=== PATIENT | male | born 1980 | race Caucasian/White ===

== ENCOUNTER 2018-05-19 00:02 | Emergency (ER) | payer BC, OTHER, SELFPAY ==
[2018-05-19 00:02] VITALS: BP 167/113; PULSE 102; RESP 18; TEMP 36.3; O2SAT 100; BMI 34.9
--- NOTE | 2018-05-19 00:31 | RAD_ITS ---
STUDY: X-RAY - RIGHT HAND REASON FOR EXAM: Male, 37 years old. Trauma TECHNIQUE: 3 view(s) of the hand. COMPARISON: None. FINDINGS: Normal radiocarpal articulation. Normal distal radioulnar joint. Normal visualized carpal bones. Normal carpal articulations Normal carpometacarpal articulation of the thumb. Normal second through fifth carpometacarpal joints. Normal metacarpi. Normal metacarpophalangeal joint of the thumb. Normal interphalangeal joint of the thumb. Normal proximal and distal phalanges of the thumb. Normal metacarpophalangeal joints of the second through fifth fingers. Normal proximal and distal interphalangeal joints of the second through fifth fingers. There is a 1 mm density adjacent to the second distal phalanx which could be a cortical fracture or foreign body. Remainder of the phalanges are unremarkable. There is soft tissue laceration and swelling of the distal second digit. The soft tissue structures are unremarkable. RAD/Hand Min 3 Views IMPRESSION: There is a 1 mm density adjacent to the second distal phalanx which could be a cortical fracture or foreign body. Remainder of the phalanges are unremarkable. There is soft tissue laceration and swelling of the distal second digit. Electronically Signed: Tim Rodriguez MD at 1:23 EST , Service support ,
[2018-05-19] MEDS: Diphth,Pertuss(Acell),Tet Vac 0.5 ML Vial IM (00:37)
--- NOTE | 2018-05-19 01:03 | ED.VISSUMM ---
- ER Visit Summary Date of Service: 05/19/18 Chief Complaint: Dog bite History of Present Illness: The patient is a 37 M presents to the emergency department dog bite. Patient was playing with his dog. He states that a bit him on the right index finger. He is left-hand dominant. He is unsure of his last tetanus. He is otherwise healthy. He states he presented here because of the bleeding. He denies other injury. He denies any other medical conditions. Physical Examination: Examination of the right hand: Patient does have laceration distal to the medial aspect of the nail. There is also a small puncture on the palmar aspect. He does have some tissue loss near the eponychial fold on the medial aspect. His two-point determination is preserved. His cap refill is less than 2 seconds. His flexion and extension are preserved. Test Results: [] Emergency Department Course and Treatment: Plain films of the hand were obtained. The patient does have what appears to be a tuft fracture of the distal tip. Digital block was performed. When the patient was blocked, the medial aspect on the dorsum of the finger was basically avulsed. It was opened and irrigated aggressively. It was cleaned. Loose sutures were placed to reapproximate the wound. I did not want to close it too aggressively as this was a dog bite. The patient tolerated this without issue. I am going to place him on oral antibiotics. I did apprise counselor him that this is going to need orthopedic follow-up for reevaluation. He is comfortable with this plan of care. I did apprise counselor him that if this cannot be seen in the next 48 hours he should come back to the emergency department for reevaluation. He is comfortable with this plan of care. Treatment Plan: [] Disposition: Discharge Impression: 1. Dog bite right index finger 2. Tuft fracture right index finger This note was generated with [employer] dictation software. It may contain incorrect words, spelling, and punctuation that were not noted in review of the chart prior to signing ED Disposition - Plan for ED Patient: Disposition: Home or Assisted Living Instructions: ED Bite Dog Prescriptions: Hydrocodone Bitart/Apap 5-325 [[place] 5MG-325MG] 1 tab PO Q6H PRN PRN 3 Days #10 tab PRN Reason: Pain Metronidazole [Flagyl] 500 mg PO Q8H #21 tab RX: Doxycycline 100 mg PO BID #20 cap Referrals: Prince Rivera DO [STAFF PHYSICIAN] - 2 Days for wound check
[2018-05-19] MEDS: metroNIDAZOLE 500 MG Tablet PO (01:42)
[2018-05-19] MEDS: Doxycycline 100 MG CAPSULE PO (01:42)
[2018-05-19] MEDS: Bupivacaine Mpf 0.5% 30 ML VIAL INFILT (01:42)
[2018-05-19 01:43] VITALS: BP 143/79; PULSE 81; RESP 22; O2SAT 97
--- NOTE | 2018-05-19 01:45 | ED.RN ---
THIS NURSE REVIEWED D/C INSTRUCTIONS WITH PT. PT VERBALIZED UNDERSTANDING OF INSTRUCTIONS. PT DENIES FURTHER NEEDS OR QUESTIONS AT THIS TIME. PT AMBULATES FROM ROOM ON OWN WITHOUT ASSISTANCE FROM STAFF
== END 2018-05-19 01:45 | disposition home or self-care (01) ==
LOC: ED 00:39
PROVIDERS: Emergency Provider Emergency Medicine
DX: S62.630B Displaced fracture of distal phalanx of right index finger, initial encounter for open fracture (principal); W54.0XXA Bitten by dog, initial encounter; Y93.89 Activity, other specified; Y92.9 Unspecified place or not applicable; S61.431A Puncture wound without foreign body of right hand, initial encounter; Z23 Encounter for immunization
CPT/HCPCS: 12002; 73130; 90471; 90715; 99285